=== PATIENT | male | born 1995 | race Caucasian/White ===

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

== ENCOUNTER 2017-05-25 19:41 | Emergency (ER) | payer OTHER ==
[~2017-05-25] VITALS: Ht 180.3 cm; Wt 81.5 kg
[2017-05-25 19:45] VITALS: BP 131/60
== END 2017-05-25 22:20 | disposition left against medical advice (07) ==
LOC: EMS 19:43
DX: Z53.21 Procedure and treatment not carried out due to patient leaving prior to being seen by health care provider (principal)